=== PATIENT | female | born 1990 | race Two or more races ===

== ENCOUNTER → 2023-06-25 07:41 | Outpatient (REF) | payer BC, SELFPAY | LOC: PNTC 07:41 | PROVIDERS: ATTENDING PHYSICIAN Obstetrics & Gynecology | DX: O99.210 Obesity complicating pregnancy, unspecified trimester (principal); O13.9 Gestational [pregnancy-induced] hypertension without significant proteinuria, unspecified trimester; O09.819 Supervision of pregnancy resulting from assisted reproductive technology, unspecified trimester; O24.419 Gestational diabetes mellitus in pregnancy, unspecified control | CPT/HCPCS: 76816 ==

== ENCOUNTER → 2023-07-22 11:16 | Outpatient (REF) | payer BC, SELFPAY | LOC: PNTC 11:16 | PROVIDERS: ATTENDING PHYSICIAN Obstetrics & Gynecology | DX: O99.210 Obesity complicating pregnancy, unspecified trimester (principal); O35.5XX0 Maternal care for (suspected) damage to fetus by drugs, not applicable or unspecified; O09.819 Supervision of pregnancy resulting from assisted reproductive technology, unspecified trimester; O10.019 Pre-existing essential hypertension complicating pregnancy, unspecified trimester; O36.8390 Maternal care for abnormalities of the fetal heart rate or rhythm, unspecified trimester, not applicable or unspecified | CPT/HCPCS: 59025; 76818 ==

== ENCOUNTER → 2023-07-29 07:50 | Outpatient (REF) | payer BC, SELFPAY | LOC: PNTC 07:50 | PROVIDERS: ATTENDING PHYSICIAN Obstetrics & Gynecology | DX: O99.210 Obesity complicating pregnancy, unspecified trimester (principal); O13.9 Gestational [pregnancy-induced] hypertension without significant proteinuria, unspecified trimester; O35.5XX0 Maternal care for (suspected) damage to fetus by drugs, not applicable or unspecified; O09.819 Supervision of pregnancy resulting from assisted reproductive technology, unspecified trimester | CPT/HCPCS: 59025; 76815 ==

== ENCOUNTER → 2023-08-05 13:52 | Outpatient (REF) | payer BC, SELFPAY | LOC: PNTC 13:52 | PROVIDERS: ATTENDING PHYSICIAN Obstetrics & Gynecology | DX: O99.210 Obesity complicating pregnancy, unspecified trimester (principal); O13.9 Gestational [pregnancy-induced] hypertension without significant proteinuria, unspecified trimester; O35.5XX0 Maternal care for (suspected) damage to fetus by drugs, not applicable or unspecified; O09.819 Supervision of pregnancy resulting from assisted reproductive technology, unspecified trimester | CPT/HCPCS: 59025; 76815 ==

== ENCOUNTER → 2023-08-14 07:52 | Outpatient (REF) | payer BC, SELFPAY | LOC: PNTC 07:52 | PROVIDERS: ATTENDING PHYSICIAN Obstetrics & Gynecology | DX: O99.210 Obesity complicating pregnancy, unspecified trimester (principal); O13.9 Gestational [pregnancy-induced] hypertension without significant proteinuria, unspecified trimester; O35.5XX0 Maternal care for (suspected) damage to fetus by drugs, not applicable or unspecified; O09.819 Supervision of pregnancy resulting from assisted reproductive technology, unspecified trimester; O36.8390 Maternal care for abnormalities of the fetal heart rate or rhythm, unspecified trimester, not applicable or unspecified | CPT/HCPCS: 59025; 76818 ==

== ENCOUNTER → 2023-08-19 09:23 | Outpatient (REF) | payer BC, SELFPAY | LOC: PNTC 09:23 | PROVIDERS: ATTENDING PHYSICIAN Obstetrics & Gynecology | DX: O99.210 Obesity complicating pregnancy, unspecified trimester (principal); O09.819 Supervision of pregnancy resulting from assisted reproductive technology, unspecified trimester | CPT/HCPCS: 76816 ==

== ENCOUNTER → 2023-08-26 09:19 | Outpatient (REF) | payer BC, SELFPAY | LOC: PNTC 09:19 | PROVIDERS: ATTENDING PHYSICIAN Obstetrics & Gynecology | DX: O99.210 Obesity complicating pregnancy, unspecified trimester (principal); O99.320 Drug use complicating pregnancy, unspecified trimester; O09.819 Supervision of pregnancy resulting from assisted reproductive technology, unspecified trimester; O10.019 Pre-existing essential hypertension complicating pregnancy, unspecified trimester | CPT/HCPCS: 59025; 76815 ==

== ENCOUNTER 2023-09-02 18:43 | Inpatient (IN) | payer BC, SELFPAY ==
[2023-09-02 19:20] VITALS: BP 130/73; BMI 34.4
[2023-09-02 19:41] LABS: Glucose - Point of Care 127 mg/dl (70-99)
[2023-09-02 19:53] LABS: % Basophils 0.5 % (0-2); % Eosinophils 1.2 % (0-6); % Immature Granulocytes 0.6 % (0-0.5); % Lymphocytes 29.4 % (20.5-51.1); % Monocytes 6.1 % (1.7-9.3); % Neutrophils 62.2 % (42.2-75.2); Absolute Basophils 0.1 10^3/uL (0-0.2); Absolute Eosinophils 0.1 10^3/uL (0-0.7); Absolute Immature Granulocytes 0.1 10^3/uL (0-0.05); Absolute Lymphocytes 3.2 10^3/uL (1.2-3.4); Absolute Monocytes 0.7 10^3/uL (0.1-0.6); Absolute Neutrophils 6.7 10^3/uL (1.4-6.5); Hematocrit 34.3 % (37.0-47.0); Mean Corpuscular Hgb 28.6 pg (27.0-31.0); Mean Corpuscular Volume 81.9 fL (81.0-99.0); Mean Platelet Volume 11.6 fL (7.4-10.4); Nucleated Red Blood Cells % 0 %; Platelet Count 306 10^3/uL (130-400); Red Blood Cell Count 4.19 10^6/uL (4.20-5.40); Red Cell Dist. Width 13.8 % (11.5-14.5); White Blood Cell Count 10.8 10^3/uL (4.8-10.8)
[2023-09-02] MEDS: CYTOTEC 25 MICROGRAM VAG (20:01)
[2023-09-02 20:06] LABS: ALT (SGPT) 15 U/L (0-35); AST (SGOT) 28 U/L (14-36); Albumin 3.6 g/dl (3.5-5.0); Alkaline Phosphatase 114 U/L (38-126); Blood Urea Nitrogen 10 mg/dl (7-17); Calcium 9.8 mg/dl (8.4-10.2); Carbon Dioxide 19 mmol/L (22-30); Chloride 107 mmol/L (98-107); Estimated Creatinine Clearance > 125 ml/min; Glucose 125 mg/dl (70-99); Sodium 135 mmol/L (135-145); Total Bilirubin 0.4 mg/dl (0.2-1.3); Total Protein 6.6 g/dl (6.3-8.2); eGFR > 60.00
[2023-09-02] MEDS: TRANDATE 100 MG PO (21:27)
[2023-09-02] MEDS: HUMULIN N KWIKPEN 34 UNITS SC (22:10)
[2023-09-02 22:14] LABS: Glucose - Point of Care 103 mg/dl (70-99)
[2023-09-03] MEDS: CYTOTEC 50 MICROGRAM PO ×2 (04:01)
[2023-09-03 06:48] LABS: Glucose - Point of Care 97 mg/dl (70-99)
[2023-09-03] MEDS: CYTOTEC PO ×3 (08:13→15:43)
[2023-09-03] MEDS: TRANDATE 100 MG PO ×2 (08:19→20:16)
[2023-09-03] MEDS: PRENATAL PLUS 1 TABLET PO (08:19)
[2023-09-03 11:06] LABS: Glucose - Point of Care 94 mg/dl (70-99)
[2023-09-03] MEDS: TUMS EX (EXTRA STRENGTH) CHEWABLE 2 TABLET PO (11:31)
[2023-09-03 15:07] LABS: Glucose - Point of Care 88 mg/dl (70-99)
[2023-09-03] MEDS: PITOCIN 30 UNITS/NSS 500 ML IV (15:58)
[2023-09-03 19:19] LABS: Glucose - Point of Care 101 mg/dl (70-99)
[2023-09-03 23:11] LABS: Glucose - Point of Care 94 mg/dl (70-99)
[2023-09-04] MEDS: SUBLIMAZE 100 MCG EPIDURAL (00:48)
[2023-09-04] MEDS: FENTANYL/BUPIVACAINE 100 EPIDURAL ×3 (00:49→16:01)
--- NOTE | 2023-09-04 03:42 | DOWNTIME ---
There was a [employer] Washroom Attendant Downtime on 09/04/2023 from 0100 to 09/04/2023 at 0337. Downtime documentation of patient's care, including medication administrations, has been reconciled in the electronic record per guidelines. Refer to the
patient's paper chart under the miscellaneous tab to see printed paper medication records and downtime forms.
[2023-09-04 06:52] LABS: Glucose - Point of Care 83 mg/dl (70-99)
[2023-09-04] MEDS: TRANDATE 100 MG PO ×2 (08:05→22:05)
[2023-09-04] MEDS: PRENATAL PLUS 1 TABLET PO (08:05)
[2023-09-04] MEDS: LR 1000 IV (08:05)
[2023-09-04 09:53] LABS: Glucose - Point of Care 87 mg/dl (70-99)
[2023-09-04 11:03] LABS: Glucose - Point of Care 107 mg/dl (70-99)
[2023-09-04] MEDS: CYTOTEC PO (11:14)
[2023-09-04 15:10] LABS: Glucose - Point of Care 97 mg/dl (70-99)
[2023-09-04 17:56] LABS: Glucose - Point of Care 90 mg/dl (70-99)
[2023-09-04] MEDS: TYLENOL 1000 MG PO (18:02)
[2023-09-04] MEDS: ANCEF 10 IV (18:02)
[2023-09-04] MEDS: BICITRA 30 ML PO (18:02)
[2023-09-04 18:18] LABS: Urine Albumin Negative (Neg - Trace); Urine Bilirubin Negative (Negative); Urine Character Clear (Clear); Urine Color Yellow; Urine Glucose Negative (Negative); Urine Ketone 2+ (Negative); Urine Leukocyte Trace (Negative); Urine Nitrite Negative (Negative); Urine Occult Blood Trace (Negative); Urine Urobilinogen Negative (Neg - 1+)
[2023-09-04 18:30] LABS: Urine Bacteria Few (Negative)
[2023-09-04 18:32] LABS: Protein/creatinine Ratio 0.2; Urine Protein 12 mg/dl
[2023-09-04 19:03] LABS: Cord ABG Comment CORD BLOOD
[2023-09-04 19:05] LABS: B.E. Cord ABG -1.4 mMOL/L; HCO3 Cord ABG 26.4 mmol/L; O2 Saturation % Cord ABG 18.2 %; PCO2 Cord ABG 55 mmHg; PO2 Cord ABG 10 mmHg; pH Cord ABG 7.29
[2023-09-04 19:10] LABS: B.E. Cord ABG -1.3 mMOL/L; HCO3 Cord ABG 27.4 mmol/L; O2 Saturation % Cord ABG 9.7 %; PCO2 Cord ABG 61 mmHg; PO2 Cord ABG 6 mmHg; pH Cord ABG 7.26
[2023-09-04 19:35] VITALS: BP 132/81; BP 176/97
--- NOTE | 2023-09-04 19:36 | W.IMMPOSTOP ---
Surgical Immed Post Op Note
-
Primary Surgeon: Fatmata Meraz DO
Assisting Surgeon: Ruthie Pierce RN
Pre-op Diagnosis: IUP at 39+0wks, Failed IOL, CHTN, A2GDM, obesity
Post-op Diagnosis: ROXANN
Procedure Performed: PLTCS
Anesthesia Type: epidural, GETA
Specimen / Cultures: Placenta, cord gases
Estimated Blood Loss: 455ml
Complications: none
Operative Findings: Male , cephalic, Apgars 8/9, weight 4030gm. Clear amniotic fluid. Normal appearing uterus, tubes and ovaries. Intermittent atony after uterine closure, so Hemabate 250mcg given IM with good improvement in uterine tone.
Insufficient pain control with epidural anesthesia after skin incision was made; pt required GETA to complete surgery.
[2023-09-04 19:46] LABS: Glucose - Point of Care 151 mg/dl (70-99)
[2023-09-04] MEDS: TRANDATE 5 MG IV (19:49)
[2023-09-04 19:50] VITALS: BP 164/96
[2023-09-04] MEDS: DILAUDID 0.25 MG IV (19:53)
[2023-09-04 20:05] VITALS: BP 160/93
[2023-09-04 20:20] VITALS: BP 148/65
[2023-09-04 20:35] VITALS: BP 136/55
[2023-09-04 20:50] VITALS: BP 133/71
[2023-09-04] MEDS: TORADOL 15 MG IV (21:57)
[2023-09-04] MEDS: FLUSH (NSS) 2 FLUSH IV (21:57)
[2023-09-05] MEDS: PITOCIN 30 UNITS/NSS 500 ML IV
[2023-09-05] MEDS: IMODIUM 2 MG PO (01:47)
[2023-09-05] MEDS: TORADOL 15 MG IV ×3 (03:56→15:34)
[2023-09-05 04:36] LABS: Hemoglobin 11.2 g/dL (12.0-16.0); Mean Corp Hgb Conc. 32.9 g/dL (33.0-37.0); Mean Corpuscular Hgb 27.9 pg (27.0-31.0); Mean Corpuscular Volume 84.6 fL (81.0-99.0); Mean Platelet Volume 11.5 fL (7.4-10.4); Platelet Count 242 10^3/uL (130-400); Red Blood Cell Count 4.02 10^6/uL (4.20-5.40); White Blood Cell Count 16.3 10^3/uL (4.8-10.8)
[2023-09-05] MEDS: TRANDATE 100 MG PO ×3 (07:44→20:17)
[2023-09-05] MEDS: PRENATAL PLUS 1 TABLET PO (07:44)
[2023-09-05] MEDS: MYLICON 80 MG PO ×3 (07:45→18:08)
[2023-09-05] MEDS: PERCOCET 5/325 1 TABLET PO (07:45)
--- NOTE | 2023-09-05 09:21 | W.PN.ANS.POP ---
Anesthesia Post Operative
- Anesthesia Post Op Note
Vital Signs Stable-See Nursing Note: Yes
Airway Patent: Yes
Adequate Pain Control: Yes
Change in Mental Status: No
Current Postoperative Nausea & Vomiting: No
Anesthesia Complications: No
General Anesthetic Recall: No
Unplanned Admission: No
Post Op Hydration Adequate: Yes
[2023-09-05] MEDS: SENOKOT-S 1 TABLET PO (10:32)
[2023-09-05] MEDS: TYLENOL 650 MG PO (20:17)
[2023-09-05 20:25] LABS: Hematocrit 31.6 % (37.0-47.0); Hemoglobin 10.9 g/dL (12.0-16.0); Mean Corp Hgb Conc. 34.5 g/dL (33.0-37.0); Mean Corpuscular Hgb 28.5 pg (27.0-31.0); Mean Corpuscular Volume 82.7 fL (81.0-99.0); Mean Platelet Volume 11.2 fL (7.4-10.4); Platelet Count 265 10^3/uL (130-400); Red Blood Cell Count 3.82 10^6/uL (4.20-5.40); Red Cell Dist. Width 14.3 % (11.5-14.5); White Blood Cell Count 13.1 10^3/uL (4.8-10.8)
[2023-09-05 20:55] LABS: ALT (SGPT) 16 U/L (0-35); AST (SGOT) 39 U/L (14-36); Albumin 3.3 g/dl (3.5-5.0); Alkaline Phosphatase 102 U/L (38-126); Blood Urea Nitrogen 9 mg/dl (7-17); Calcium 9.1 mg/dl (8.4-10.2); Carbon Dioxide 21 mmol/L (22-30); Chloride 108 mmol/L (98-107); Estimated Creatinine Clearance > 125 ml/min; Glucose 105 mg/dl (70-99); Sodium 137 mmol/L (135-145); Total Bilirubin 0.3 mg/dl (0.2-1.3); Total Protein 5.8 g/dl (6.3-8.2); eGFR > 60.00
[2023-09-05 22:40] LABS: Glucose - Point of Care 113 mg/dl (70-99)
[2023-09-06] MEDS: TYLENOL 650 MG PO ×4 (02:01→22:19)
[2023-09-06] MEDS: BENADRYL 25 MG IV (03:18)
[2023-09-06] MEDS: PRENATAL PLUS 1 TABLET PO (08:12)
[2023-09-06] MEDS: TRANDATE 200 MG PO ×2 (08:13→20:00)
[2023-09-06] MEDS: SENOKOT-S 1 TABLET PO (08:16)
[2023-09-06] MEDS: MOTRIN 600 MG PO ×3 (08:16→22:19)
[2023-09-06 13:45] LABS: Syphilis/T. pallidum Ab Reflex Negative (Negative)
--- NOTE | 2023-09-06 14:46 | CON.MD ---
Consultation - Medical
-
patient seen chart reviewed. discussed with nursing. patient is a 33 year old woman who delivered her baby boy via c section yesterday. the child was conceived via in vitro. her was in the room during this interview. n the wake of the labor
and delivery she suffered with panic so much so the staff said she was almost shivering. this consult ordered for ? panic attacks. the patient describes that she can be an anxious person but the anxiety generally does not interfere with her life
either at work or at home . the past year has been even more stressful than usual. she moved here from [place] and they renovated their new home which went on even through the last trimester. she had issues with hypertension and gestational diabetes .
she was to be induced but the induction did not work and she wound up requiring a c section . the initial anaesthetic did not take and she felt pain upon incision. she is at this point feeling less anxious but fearful about her anxiety recurring
in earnest. she did have a panic attack while in college but it was short lived and never required treatment by a psychiatrist or other therapist. she is normally a happy person and her concurred with this assessment. she works a stressful
job in sales for [employer]. she enjoys her life. she has friendships and family supports. sleep generally okay unless there is something coming up at work. appetite is good. energy level is normal for her.she has never had suicidal thoughts.
there is nothing to suggest psychosis.
past psych hx see above
medical hx htn gestational diabetes pco patient reports that she actually felt healthier during her . pco has not been treated medically
family hx anxiety brother takes prn for anxiety
substance abuse none
social supportive college grad works for [employer]. denies any hx abuse sexual or physical recently moved here from [place]
mse alert ox3 cooperative pleasant. speech and thought process nl affect normal mood is euthymic no si no psychosis above aver intell insight judgment good
dx adjustment disorder w anxious fx r.o panic disorder
plan at this point would suggest only rare and prn ativan. explained to patient that ativan generally considered safe with but preferred is infrequent use. need to take care re sedation in terms of cognition and falling and baby should be
monitored re sedation, slow feeding etc. my guess is this patient will not use ativan frequently. i have ordered q 12 hours and if needed she can see how it goes in hospital. would dc with no more than ten pills. if she needs more than this in the
next two or three weeks would consider use of zoloft for longer control of anxiety . zoloft generally considered safe w . gave her the names of two psychiatrists in the community although zoloft can be prescribed by pcp or obgyn.
[2023-09-07] MEDS: TYLENOL 650 MG PO ×3 (05:01→19:36)
[2023-09-07] MEDS: MOTRIN 600 MG PO ×3 (05:01→19:37)
[2023-09-07] MEDS: PRENATAL PLUS 1 TABLET PO (07:52)
[2023-09-07] MEDS: TRANDATE 200 MG PO ×2 (07:52→08:19)
[2023-09-07] MEDS: SENOKOT-S 1 TABLET PO (07:52)
[2023-09-07] MEDS: APRESOLINE 10 MG IV ×2 (14:58→15:48)
[2023-09-07 15:04] LABS: Hematocrit 37.4 % (37.0-47.0); Hemoglobin 12.3 g/dL (12.0-16.0); Mean Corp Hgb Conc. 32.9 g/dL (33.0-37.0); Mean Corpuscular Hgb 28.1 pg (27.0-31.0); Mean Corpuscular Volume 85.4 fL (81.0-99.0); Platelet Count 307 10^3/uL (130-400); Red Blood Cell Count 4.38 10^6/uL (4.20-5.40); Red Cell Dist. Width 14.4 % (11.5-14.5); White Blood Cell Count 10.7 10^3/uL (4.8-10.8)
[2023-09-07 15:08] LABS: ALT (SGPT) 23 U/L (0-35); AST (SGOT) 41 U/L (14-36); Albumin 3.8 g/dl (3.5-5.0); Alkaline Phosphatase 103 U/L (38-126); Blood Urea Nitrogen 10 mg/dl (7-17); Calcium 9.7 mg/dl (8.4-10.2); Carbon Dioxide 22 mmol/L (22-30); Chloride 107 mmol/L (98-107); Estimated Creatinine Clearance > 125 ml/min; Glucose 107 mg/dl (70-99); Potassium 4.2 mmol/L (3.5-5.1); Sodium 140 mmol/L (135-145); Total Bilirubin 0.4 mg/dl (0.2-1.3); Total Protein 6.8 g/dl (6.3-8.2); eGFR > 60.00
[2023-09-07] MEDS: ATIVAN 0.5 MG PO (15:41)
--- NOTE | 2023-09-07 15:48 | CON.CAR ---
Consultation
Consultation Request
Date/Time Consultation Requested: 09/07/2023 at 1500
Date/Time Consultation Performed: 09/07/2023 at 1500
Requesting Provider: Dr. Neely
Performing Provider: Dr. Cordova
Reason for Consultation: Hypertension
Medical History
-
History of Present Illness:
33-year-old woman who is now after . This is her first . Patient has a history of a history of gestational diabetes and hypertension who had been maintained on labetalol during her at 100 mg twice daily. She
underwent a and is now in recovery. She has been maintained on labetalol but has had some issues with increased blood pressure prompting titration of labetalol up to 100 mg twice a day and then today increased to 400 mg twice daily.
Patient still had issues with elevated blood pressures. In addition to the above patient's had periods of anxiety and at times is felt like she has had panic attacks where she just feels like she is shaky and anxious and feels like she is having
difficulty breathing. She has been seen by psychiatry this admission and has prescription for as needed Ativan no additional medical therapy recommended at this time.
Patient states she has had no prior history of cardiac disease and no history of hypertension preceding . She says at times she had elevated readings and it was suspected that she had whitecoat hypertension. She states that prior to
she sometimes would feel a bit anxious but it was nothing that required additional treatment and she was not having any feelings that were as pronounced as what she has had more recently.
Past medical history
As noted above
Social history
Family history notable for father with coronary disease and pacemaker
Past Medical History
Past Medical History: Other (As above)
Social History
Tobacco: Non-Smoker
Family History
Family History: CAD
Allergies / Home Medications
Allergy/AdvReac Type Severity Reaction Status Date / Time
No Known Allergies Allergy Verified 09/02/23 19:20
�Medication �Instructions �Recorded �Confirmed �Type
aspirin 81 mg tablet,delayed 81 mg PO DAILY Blood Clot 09/02/23 09/02/23 History
release Prevention/Tx
insulin NPH isoph U-100 human 100 6 unit SC DAILY Diabetes 09/02/23 09/03/23 History
unit/mL (3 mL) subcutaneous pen
(Novolin N FlexPen)
insulin NPH isoph U-100 human 100 34 unit SC HS Diabetes 09/02/23 09/02/23 History
unit/mL (3 mL) subcutaneous pen
(Novolin N FlexPen)
labetalol 100 mg tablet 100 mg PO BID Blood Pressure 09/02/23 09/02/23 History
prenat.vits,thomas,xbh-vgaz-[id number] 1 tab PO DAILY Supplement 09/02/23 09/02/23 History
Review of Systems
-
All other systems: Negative unless noted
Physical Exam
Vital Signs
Temp Pulse Resp BP Pulse Ox
97.9 F 69 20 179/100 96
09/04/23 20:50 09/07/23 14:58 09/04/23 20:50 09/07/23 14:58 09/04/23 20:50
Lab Results
09/07/23 14:49
09/07/23 14:49
Physical Exam
General: Well Developed, Well Nourished and Other (Anxious.)
HEENT: Normocephalic, Anicteric and Moist Mucous Membranes
Respiratory: Clear and Other (No wheezes rales or rhonchi)
Cardiac: Regular Rhythm
GI: Other ( abdomen)
Musculoskeletal: No Clubbing, No Cyanosis and No Edema
Neuro: Awake and Alert
Psych: Other (Cooperative. Anxious at end of visit particularly when nurse came in to take blood pressure)
Impression / Plan
-
Hypertension.
-Patient with hypertension during for which she was on labetalol and now with hypertension. Patient also appears to have a component of reactive hypertension which is impacted by anxiety. Postop pain also can add to her
variation in blood pressure as well. Had 1 set of blood pressures earlier this morning in the 120s over 80s and then most recently she had a blood pressure of 170/94 while I was in the room. Clinically the patient started to appear anxious as soon
as the nurse came into take her blood pressure and then was even more anxious when she heard her blood pressure was elevated. Labetalol dosing has just been increased by EXHAUST AND MUFFLER REPAIRER and patient just had her first 400 mg dose this morning and as needed
hydralazine has just been initiated by EXHAUST AND MUFFLER REPAIRER.
-Continue labetalol 400 mg twice daily.
-Continue hydralazine IV as needed as per protocol. We will assess response.
-Additional treatment of anxiety. Patient just received a dose of Ativan and can reassess blood pressure after Ativan's been given enough time to work.
-Postop pain control
-If despite all the measures above patient requires additional blood pressure control then use of Procardia can be considered.
.
Postop . Treatment directed by EXHAUST AND MUFFLER REPAIRER
Anxiety. Additional treatment as directed by EXHAUST AND MUFFLER REPAIRER and psychiatry.
Data Reviewed
-
EKG: Report Reviewed by me
Medical Tests (Nuc Med, Echo etc): Report Reviewed by me
Labs: Labs Reviewed by me
[2023-09-07] MEDS: MYLICON 80 MG PO (17:07)
[2023-09-07] MEDS: TRANDATE 20 MG IV (17:15)
[2023-09-07] MEDS: TRANDATE 400 MG PO (19:31)
[2023-09-08] MEDS: TYLENOL 650 MG PO ×3 (02:51→20:02)
[2023-09-08] MEDS: MOTRIN 600 MG PO ×3 (02:51→20:02)
[2023-09-08] MEDS: MYLICON 80 MG PO (03:15)
[2023-09-08] MEDS: SENOKOT-S 1 TABLET PO (08:10)
[2023-09-08] MEDS: PRENATAL PLUS 1 TABLET PO (08:10)
[2023-09-08] MEDS: TRANDATE 400 MG PO ×2 (08:11→20:02)
--- NOTE | 2023-09-08 08:41 | W.PN.CD ---
Today's Communication / Plan
-
-Continue labetalol 400 mg twice daily.
-Appears patient will require addtional BP control. Can add Procardia XL 30 Mg
- will review with Dr Neely
Impression / Plan
-
Hypertension.
-Patient with hypertension during for which she was on labetalol and now with hypertension. Patient also appears to have a component of reactive hypertension which is impacted by anxiety. Yesddaywas more anxious and felt
better after ativan and clear is feeling better this morning. aptient recieved Labetalol 400mg BID yesterday and some PRN Hydralazine and a\\Labetalol as per BENEFIT DIRECTOR protocol
-Continue labetalol 400 mg twice daily.
-Appears patient will require addtional BP control. Can add Procardia XL 30 Mg
- Reviewed with Dr Neely
.
Postop . Treatment directed by BENEFIT DIRECTOR
Anxiety. Additional treatment as directed by BENEFIT DIRECTOR and psychiatry.
Physical Exam
Vital Signs/Labs
Vital Signs
Temp Pulse Resp BP Pulse Ox
97.9 F 82 20 150/92 96
09/04/23 20:50 09/07/23 19:31 09/04/23 20:50 09/07/23 19:31 09/04/23 20:50
09/07/23 14:49
09/07/23 14:49
Physical Exam
Constitutional: No acute distress
Cardiovascular: Rhythm & rate is regular
Respiratory: Respiratory effort normal
GI: Soft
Neuro/Psych: Alert and Oriented
Other: Cath Site
Data Reviewed
-
Date of Service: September 08, 2023
Medical Decision Making: Review of Case with other Provider (reviewed with Dr Neely)
Medical Tests (PFT, Pathology etc): Report Reviewed by me
[2023-09-08] MEDS: PROCARDIA XL (EXTENDED RELEASE) 30 MG PO (09:47)
[2023-09-08] MEDS: APRESOLINE 10 MG IV (17:40)
[2023-09-09] MEDS: MOTRIN 600 MG PO ×2 (04:19→10:11)
[2023-09-09] MEDS: TYLENOL 650 MG PO ×2 (04:19→10:12)
--- NOTE | 2023-09-09 08:21 | W.PN.CD ---
Today's Communication / Plan
-
-Continue labetalol 400 mg twice daily.
-Continue Procardia XL 30 Mg added yesterday
-Would give an Rx for hydralazine 20mg po TID prn bp >180/100
-Follow up Yvette PAREDES 4pm at [address] [facility] [phone]
Impression / Plan
-
induced hypertension.
-Patient with hypertension during for which she was on labetalol and now with hypertension.
-Overnight numbers improved to 139-147/60-80's
-Patient also appears to have a component of reactive hypertension which is impacted by anxiety.
-Continue labetalol 400 mg twice daily.
-Continue Procardia XL 30 Mg added yesterday
-Would give an Rx for hydralazine 20mg po TID prn bp >180/100
-Reviewed the appropriate way to check home bp and she will bring to the office.
-She will follow up with Yvette PAREDES 4pm at [address] [facility] [phone]
.
Postop . Treatment directed by FLOTATION TENDER HELPER
Anxiety. Additional treatment as directed by FLOTATION TENDER HELPER and psychiatry.
Physical Exam
Vital Signs/Labs
Vital Signs
Temp Pulse Resp BP Pulse Ox
97.9 F 86 20 160/86 96
09/04/23 20:50 09/08/23 20:02 09/04/23 20:50 09/08/23 20:02 09/04/23 20:50
09/07/23 14:49
09/07/23 14:49
Physical Exam
Constitutional: No acute distress
Cardiovascular: Rhythm & rate is regular, Pedal edema is absent, JVD pressure is normal and Systolic murmur absent
Respiratory: Respiratory effort normal, Lungs clear to auscul., Wheeze Absent, Crackles Absent and Rhonchi Absent
Neuro/Psych: AO x 3
Data Reviewed
-
Date of Service: September 09, 2023
[2023-09-09] MEDS: PROCARDIA XL (EXTENDED RELEASE) 30 MG PO (08:40)
[2023-09-09] MEDS: PRENATAL PLUS 1 TABLET PO (08:40)
[2023-09-09] MEDS: TRANDATE 400 MG PO (08:41)
--- NOTE | 2023-09-09 12:38 | W.DS.TRANS ---
DC Summary - Stenciler
-
Discharge Instructions:
Discharge Diagnosis/Procedures section, Anxiety, Hypertension
Diet Regular
Activity No strenuous activity
Driving Restrictions No driving for 2 weeks
Bathing Restrictions OK to Shower
Instructions:
Stand-Alone Forms: LDRP Delivery
LDRP Hypertensive Disorders
Changes to Home Medications: No
Discharge Medications:
DC Medications w/original date entered in [employer]
acetaminophen 325 mg tablet 650 mg (2 x 325 mg) PO Q4HPRN PRN mild pain #0 tabs 09/08/23
ibuprofen 600 mg tablet 600 mg PO Q6HPRN PRN cramps #45 tabs 09/08/23
labetalol 200 mg tablet 400 mg (2 x 200 mg) PO BID #90 tabs 09/08/23
lorazepam 0.5 mg tablet 0.5 mg PO [id number] PRN anxiety #10 tabs 09/08/23
nifedipine 30 mg tablet,extended release 30 mg PO DAILY #60 tabs 09/08/23
vitamin with calcium no.72-iron 27 mg-folic acid 1 mg tablet (WesTab Plus) 1 tab PO DAILY #0 tabs 09/08/23
sennosides 8.6 mg-docusate sodium 50 mg tablet (Stool Softener-Laxative) 1 tab PO DAILYPRN PRN constipation #0 tabs 09/08/23
hydralazine 10 mg tablet 20 mg (2 x 10 mg) PO TID PRN for BP >180/100 #20 tabs 09/09/23
Home Medication Changes
Pending Results: No
Total time spent discharging patient (in min): 25
== END 2023-09-09 13:45 | disposition home or self-care (01) | DRG 787 ==
LOC: LDRP 18:43
PROVIDERS: Obstetrics & Gynecology; ADMITTING PHYSICIAN Obstetrics & Gynecology; CONSULT PHYSICIAN Internal Medicine Cardiovascular Disease; FAMILY PHYSICIAN Family Medicine; OTHER PHYSICIAN Psychiatry & Neurology Psychiatry
PROC: 3E0P7VZ Introduction of Hormone into Female Reproductive, Via Natural or Artificial Opening (ICD-10-PCS; 2023-09-02)
PROC: 10907ZC Drainage of Amniotic Fluid, Therapeutic from Products of Conception, Via Natural or Artificial Opening (ICD-10-PCS; 2023-09-03)
PROC: 0U7C7ZZ Dilation of Cervix, Via Natural or Artificial Opening (ICD-10-PCS; 2023-09-03)
PROC: 3E033VJ Introduction of Other Hormone into Peripheral Vein, Percutaneous Approach (ICD-10-PCS; 2023-09-03)
PROC: 10H07YZ Insertion of Other Device into Products of Conception, Via Natural or Artificial Opening (ICD-10-PCS; 2023-09-04)
PROC: 6A550ZT Pheresis of Cord Blood Stem Cells, Single (ICD-10-PCS; 2023-09-04)
PROC: 10D00Z1 Extraction of Products of Conception, Low, Open Approach (ICD-10-PCS; 2023-09-04)
DX: O24.424 Gestational diabetes mellitus in childbirth, insulin controlled (principal); O10.02 Pre-existing essential hypertension complicating childbirth; O72.1 Other immediate postpartum hemorrhage; Z3A.38 38 weeks gestation of pregnancy; Z37.0 Single live birth; K21.9 Gastro-esophageal reflux disease without esophagitis; O99.284 Endocrine, nutritional and metabolic diseases complicating childbirth; E28.2 Polycystic ovarian syndrome; Z82.49 Family history of ischemic heart disease and other diseases of the circulatory system; Z83.2 Family history of diseases of the blood and blood-forming organs and certain disorders involving the immune mechanism; Z28.310 Unvaccinated for COVID-19; O99.214 Obesity complicating childbirth; O99.344 Other mental disorders complicating childbirth; F41.9 Anxiety disorder, unspecified; F32.A Depression, unspecified; F90.9 Attention-deficit hyperactivity disorder, unspecified type; O61.0 Failed medical induction of labor; J98.01 Acute bronchospasm; F43.0 Acute stress reaction
CPT/HCPCS: 88307; 76815; 80053; 81003; 81015; 82570; 82803; 82962; 84156; 85025; 85027; 86780; 86850; 86900; 86901

== ENCOUNTER 2023-10-22 11:31 | Emergency (ER) | payer BC, SELFPAY ==
[2023-10-22] VITALS (7 sets, daily range): BP systolic 137–175; BP diastolic 98–113
[2023-10-22 11:59] LABS: % Eosinophils 2.5 % (0-6); % Immature Granulocytes 0.1 % (0-0.5); % Lymphocytes 36.8 % (20.5-51.1); % Monocytes 6.9 % (1.7-9.3); % Neutrophils 52.7 % (42.2-75.2); Absolute Basophils 0.1 10^3/uL (0-0.2); Absolute Eosinophils 0.2 10^3/uL (0-0.7); Absolute Monocytes 0.6 10^3/uL (0.1-0.6); Absolute Neutrophils 4.3 10^3/uL (1.4-6.5); Hematocrit 40.9 % (37.0-47.0); Hemoglobin 13.8 g/dL (12.0-16.0); Mean Corp Hgb Conc. 33.7 g/dL (33.0-37.0); Mean Corpuscular Hgb 28.6 pg (27.0-31.0); Mean Corpuscular Volume 84.7 fL (81.0-99.0); Mean Platelet Volume 9.9 fL (7.4-10.4); Nucleated Red Blood Cells % 0 %; Platelet Count 313 10^3/uL (130-400); Red Blood Cell Count 4.83 10^6/uL (4.20-5.40); Red Cell Dist. Width 14.1 % (11.5-14.5); White Blood Cell Count 8.1 10^3/uL (4.8-10.8)
[2023-10-22 12:15] LABS: ALT (SGPT) 39 U/L (0-35); AST (SGOT) 30 U/L (14-36); Albumin 4.5 g/dl (3.5-5.0); Alkaline Phosphatase 56 U/L (38-126); Blood Urea Nitrogen 11 mg/dl (7-17); Calcium 9.8 mg/dl (8.4-10.2); Carbon Dioxide 26 mmol/L (22-30); Chloride 105 mmol/L (98-107); Glucose 120 mg/dl (70-99); Potassium 4.5 mmol/L (3.5-5.1); Sodium 137 mmol/L (135-145); Total Bilirubin 0.6 mg/dl (0.2-1.3); eGFR > 60.00
[2023-10-22 12:27] LABS: Troponin I < 0.012 ng/ml
[2023-10-22 13:07] LABS: D-Dimer 0.29 ug/mlFEU (0.00-0.50)
[2023-10-22 13:08] LABS: Urine Albumin Negative (Neg - Trace); Urine Bilirubin Negative (Negative); Urine Character Clear (Clear); Urine Color Yellow; Urine Glucose Negative (Negative); Urine Ketone Negative (Negative); Urine Leukocyte Negative (Negative); Urine Nitrite Negative (Negative); Urine Occult Blood Negative (Negative); Urine Specific Gravity 1.005 (<1.030); Urine Urobilinogen Negative (Neg - 1+)
[2023-10-22] MEDS: TYLENOL 650 MG PO (13:33)
--- NOTE | 2023-10-22 14:39 | ED.GENMED ---
History of Present Illness
General
Chief Complaint: Chest Pain
Source: patient and spouse
Exam Limitations: none
Time Seen by Provider: 10/22/23 11:54
Nursing documentation reviewed up to this point in time: agreed with
History of Present Illness
History of Present Illness:
33-year-old female with recent delivery 7 months ago via presenting to the emergency department today with concerns of chest pressure and palpitations this morning that has since resolved a few hours ago. Also has had some ongoing
headache over the past few weeks. She was recently taken off Procardia was on this due to high blood pressure . Currently taking labetalol. Denies any ongoing chest pain shortness of breath numbness weakness nausea vomiting.
Review of Systems
Review of Systems
Allergies reviewed?: Yes
All Other Systems: ROS reviewed and negative except as documented in HPI and ROS
Phy Exam
Physical Exam
Physical Exam:
GENERAL: Alert , in no apparent distress
EYE: pupils equal and reactive
NECK: Supple, no significant adenopathy.
ENT: o/p clr, mmm.
CARDIAC: Regular rate and rhythm .
LUNGS: Clear breath sounds bilaterally, no acute respiratory distress, no wheezes/rales/rhonchi
ABDOMEN: Soft, without focal tenderness, no r/g, no cvat
NEUROLOGICAL: Alert and oriented, no focal neuro deficits 5 out of 5 upper and lower extremity strength normal sensation with palpating bilaterally normal picking nose he noted send no pronator drift
SKIN: Warm and dry, skin intact.
MUSCULOSKELETAL: No edema, well perfused.
PSYCH: Normal and appropriate interaction.
Scores
Heart Score for Chest Pain Patients
STEMI patient?: No
History: Slightly or Non-Suspicious
ECG: Normal
Age: </= 45 years
Risk Factors: No Risk Factors
Troponin: </= Normal Limit
Heart Score for Chest Pain Patients: 0
Heart Score Risk: 2.5% MACE over next 6 weeks
Course
Orders/Labs/Results
Orders:
Orders
10/22/23 11:39
Electrocardiogram (*1) Urgent
Reason for Study: Chest Pain
Cardiac Monitoring- Treatment ONCE
EKG- Treatment ONCE
IV Insert/Care/Rem.- Treatment PRN
O2 Therapy [RESP] Urgent
Titrate/Wean O2 to maintain O2 sat greater than (%): 90
Special Instructions: Maintain sats >/=90%
Pulse Ox/spot Check [RESP] Urgent
Quantity: 1
Special Instructions: ON ROOM AIR
10/22/23 11:49
Complete Blood Count/With Diff Urgent
Comprehensive Metabolic Panel Urgent
Troponin I Urgent
10/22/23 12:26
Chest [CR Chest - 2 Views ] Urgent
Comment:
Reason For Exam: cp
10/22/23 12:44
D-Dimer Urgent
Urinalysis Reflex To Culture Urgent
Date Specimen was Collected: 10/22/23
Time Specimen was Collected: 12:39
10/22/23 13:28
Acetaminophen [Tylenol] 650 mg .ROUTE .STK-MED ONE
10/22/23 13:32
Acetaminophen [Tylenol] 650 mg PO NOW STA
10/22/23 14:39
Ibuprofen [Motrin] 600 mg PO NOW STA
Abnormal Lab Results
10/22/23
11:49
Glucose 120 H mg/dl
(70-99)
ALT 39 H U/L
(0-35)
10/22/23 11:49
10/22/23 11:49
Vital Signs
Initial and Last Documented VS:
Initial Vital Signs
Temp Pulse Resp BP Pulse Ox
97.8 F 72 18 172/111 98
10/22/23 11:32 10/22/23 11:32 10/22/23 11:32 10/22/23 11:32 10/22/23 11:32
Last Documented Vital Signs
Temp Pulse Resp BP Pulse Ox
97.8 F 75 14 151/107 96
10/22/23 11:32 10/22/23 13:24 10/22/23 13:24 10/22/23 13:24 10/22/23 13:24
MDM/Problems Addressed
MDM/Problems Addressed:
33-year-old female presenting to the emergency department today with concerns of chest pain shortness of breath resolving prior to arrival additionally ongoing headache for multiple weeks. Here initial blood pressure was elevated but improving to
normal without specific treatment. Remainder vital signs normal labs obtained and unremarkable urinalysis normal patient is out of window for preeclampsia but blood pressure also is improving. Troponin negative EKG normal. Acute cardiac etiology
very unlikely D-dimer negative PE very unlikely cause of chest pain. Patient with normal neurologic evaluation does not appear to require emergent imaging at this time but was advised for outpatient follow-up return precautions given.
*Critical Care Note
Total Time (30-74mins, 75-104mins- exclusive of procedures): Not Applicable
ED Attending Note
-
Portions of this chart may have been created with voice recognition software.� Occasional wrong word or��sound alike� substitutions may have occurred due to the inherent limitations of voice recognition software.
Discharge Plan
Departure
Patient Disposition: Home (Routine Discharge)
Date of Disposition: 10/22/23
Time of Disposition: 14:41
Patient with high blood pressure during this ER visit?: No
Condition: Good
Covid-19: Not Applicable
Discharge Problem:
Chest pain, Headache
Instructions: Chest Pain DCA Follow Up
Prescriptions:
No Action
labetalol 200 mg Tablet
400 mg PO BID Qty: 90 0RF
sennosides-docusate sodium [Stool Softener-Laxative] 8.6-50 mg Tablet
1 tab PO DAILYPRN PRN (Reason: constipation) Qty: 0 0RF
nifedipine 30 mg Tablet Extended Release
30 mg PO DAILY Qty: 60 0RF
lorazepam 0.5 mg Tablet
0.5 mg PO [id number] PRN (Reason: anxiety) Qty: 10 0RF
ibuprofen 600 mg Tablet
600 mg PO Q6HPRN PRN (Reason: cramps) Qty: 45 0RF
WesTab Plus 27 mg iron- 1 mg Tablet
1 tab PO DAILY Qty: 0 0RF
acetaminophen 325 mg Tablet
650 mg PO Q4HPRN PRN (Reason: mild pain) Qty: 0 0RF
hydralazine 10 mg tablet
20 mg PO TID PRN (Reason: for BP >180/100) Qty: 20 0RF
Referrals:
Robi Garcia MD [Active] - Follow up in 5-7 days
Cristobal Cisneros DO [Family Provider] -
Activity Restrictions/Additional Instructions:
You came to the emergency department today with concerns of chest discomfort as well as ongoing headache. Here you have a reassuring assessment. Please follow-up closely with neurology and cardiology for further assessment. Return to the
emergency department for any worsening, new or concerning symptoms.
Interventions
Interventions:
*Risk Screen - Suicide Last Done: 10/22/23 11:32
*General Assessment Last Done: 10/22/23 11:32
*ED COVID-19 Vaccine History Last Done: 10/22/23 11:32
ED- Cardiac Assessment Last Done: 10/22/23 12:17
Discharge Date and Time
Print Language: SLOVAK
[2023-10-22] MEDS: MOTRIN 600 MG PO (14:52)
== END 2023-10-22 15:31 | disposition home or self-care (01) ==
LOC: EMR 11:31
PROVIDERS: Physician Assistant; EMERGENCY PHYSICIAN Emergency Medicine; FAMILY PHYSICIAN Family Medicine
DX: R07.89 Other chest pain (principal); R51.9 Headache, unspecified
CPT/HCPCS: 99283; 71046; 80053; 81003; 84484; 85025; 85379; 93005

== ENCOUNTER → 2023-10-30 13:57 | Outpatient (REF) | payer BC, SELFPAY | LOC: HWRCS 13:57 | PROVIDERS: ATTENDING PHYSICIAN Nurse Practitioner; FAMILY PHYSICIAN Family Medicine | DX: R00.2 Palpitations (principal); R07.89 Other chest pain; R06.02 Shortness of breath | CPT/HCPCS: 93306 ==

== ENCOUNTER → 2023-11-05 10:25 | Outpatient (REF) | payer BC, SELFPAY | LOC: RCS 10:25 | PROVIDERS: ATTENDING PHYSICIAN Nurse Practitioner; FAMILY PHYSICIAN Family Medicine | DX: R00.2 Palpitations (principal); R07.89 Other chest pain; R06.02 Shortness of breath | CPT/HCPCS: 93225; 93226 ==

== ENCOUNTER → 2023-11-15 07:28 | Outpatient (REF) | payer BC, SELFPAY | LOC: RAD 07:28 | PROVIDERS: ATTENDING PHYSICIAN Internal Medicine Endocrinology, Diabetes & Metabolism; FAMILY PHYSICIAN Family Medicine; OTHER PHYSICIAN Internal Medicine Nephrology; REFERRING PHYSICIAN Nurse Practitioner Adult Health | DX: D35.00 Benign neoplasm of unspecified adrenal gland (principal) | CPT/HCPCS: 74150 ==

== ENCOUNTER 2023-12-20 13:11 | Emergency (ER) | payer BC, SELFPAY ==
[2023-12-20 13:22] VITALS: BP 162/95
--- NOTE | 2023-12-20 13:45 | ED.GENMED ---
History of Present Illness
<Praneeth Mccrary PA-C - Last Filed: 12/21/23 12:36>
General
Chief Complaint: Breathing Problem
Time Seen by Provider: 12/20/23 13:32
History of Present Illness
History of Present Illness:
33-year-old female with history of pheochromocytoma status post left adrenalectomy performed 2 days ago at [facility] presents to the emergency department for evaluation of dizziness, nausea, chest discomfort, and shortness
of breath beginning today. She was concerned that her blood pressure was elevated at home as well as elevated heart rate. Her blood pressure medications were discontinued the day of surgery. She denies any fever, vomiting, or diarrhea. Has had
constipation and had bright red blood per rectum this morning as well, known history of hemorrhoids. Denies any abdominal pain
Review of Systems
<Praneeth Mccrary PA-C - Last Filed: 12/21/23 12:36>
Review of Systems
Allergies reviewed?: Yes
All Other Systems: ROS reviewed and negative except as documented in HPI and ROS
Phy Exam
<Praneeth Mccrary PA-C - Last Filed: 12/21/23 12:36>
Physical Exam
Physical Exam:
GEN: Well appearing, NAD, WDWN
Eyes: PERRLA, EOMs intact, no scleral icterus
HENT: NCAT, oral mucosa moist
Lungs: CTAB, no wheezes, rales, rhonchi, normal chest wall excursion
Cardiac: RRR, no M/R/G, no peripheral edema. Radial pulses 2+ bilat
Abdomen: Laparoscopic port sites on the left abdomen clean dry intact with no erythema. Abdomen is generally soft and grossly nontender
Neuro: AO x 3
MSK: No gross deformity or ecchymosis. No edema. No digital clubbing
Skin: No rashes, petechiae. Normal color, no pallor or jaundice.
Psych: Calm, cooperative, proper hygiene
Course
<Praneeth Mccrary PA-C - Last Filed: 12/21/23 12:36>
Orders/Labs/Results
Orders:
Orders
12/20/23 13:12
Electrocardiogram (*1) Urgent
Reason for Study: Shortness of Breath
12/20/23 13:13
EKG- Treatment ONCE
12/20/23 13:44
CT Chest Pe Study Urgent
Comment:
Reason For Exam: chest pain/SOB, 2d s/p L adrenalectomy
12/20/23 13:59
Test Result ONCE
12/20/23 14:05
Complete Blood Count/With Diff Urgent
Comprehensive Metabolic Panel Urgent
HCG, Serum Qualitative Screen Urgent
Troponin I Urgent
12/20/23 15:44
CT Head W/o Iv Contrast Urgent
Comment:
Reason For Exam: headache
12/20/23 14:05
12/20/23 14:05
Vital Signs
Initial and Last Documented VS:
Initial Vital Signs
Temp Pulse Resp BP Pulse Ox
99.1 F 76 18 162/95 100
12/20/23 13:22 12/20/23 13:22 12/20/23 13:22 12/20/23 13:22 12/20/23 13:22
Last Documented Vital Signs
Temp Pulse Resp BP Pulse Ox
99.1 F 67 19 116/72 97
12/20/23 13:22 12/20/23 17:15 12/20/23 17:15 12/20/23 17:00 12/20/23 17:15
<REGGIE Dick - Last Filed: 12/20/23 19:08>
Orders/Labs/Results
Orders:
Orders
12/20/23 13:12
Electrocardiogram (*1) Urgent
Reason for Study: Shortness of Breath
12/20/23 13:13
EKG- Treatment ONCE
12/20/23 13:44
CT Chest Pe Study Urgent
Comment:
Reason For Exam: chest pain/SOB, 2d s/p L adrenalectomy
12/20/23 13:59
Test Result ONCE
12/20/23 14:05
Complete Blood Count/With Diff Urgent
Comprehensive Metabolic Panel Urgent
HCG, Serum Qualitative Screen Urgent
Troponin I Urgent
12/20/23 15:44
CT Head W/o Iv Contrast Urgent
Comment:
Reason For Exam: headache
12/20/23 14:05
12/20/23 14:05
Vital Signs
Initial and Last Documented VS:
Initial Vital Signs
Temp Pulse Resp BP Pulse Ox
99.1 F 76 18 162/95 100
12/20/23 13:22 12/20/23 13:22 12/20/23 13:22 12/20/23 13:22 12/20/23 13:22
Last Documented Vital Signs
Temp Pulse Resp BP Pulse Ox
99.1 F 67 19 116/72 97
12/20/23 13:22 12/20/23 17:15 12/20/23 17:15 12/20/23 17:00 12/20/23 17:15
<Praneeth Mccrary PA-C - Last Filed: 12/21/23 12:36>
MDM/Problems Addressed
MDM/Problems Addressed:
33-year-old female presenting with various symptoms including dizziness, chest pressure, and shortness of breath 3 days status post left adrenalectomy performed at [facility]. Her labs are reassuring, PE study independently interpreted by me shows no
evidence for acute pulmonary embolism, final result pending. I discussed the case with her surgical team at [facility] and they are comfortable with workup that is completed. I discussed with the patient and she is quite adamant that her head pressure
is concerning her, states this has been ongoing previously with her pheochromocytoma symptoms however given that she is status post surgery she is concerned this indicate something more severe. I am unable to reassure her that neurologically she
appears normal and there is no high indication for CT of we will order this to reassure her there is no mass or bleeding within the brain. Care signed out to Loern Barbsoa NP pending final CT readings
<REGGIE Dick - Last Filed: 12/20/23 19:08>
MDM/Problems Addressed
MDM/Problems Addressed:
33-year-old female presenting with various symptoms including dizziness, chest pressure, and shortness of breath 3 days status post left adrenalectomy performed at [facility]. Her labs are reassuring, PE study independently interpreted by me shows no
evidence for acute pulmonary embolism, final result pending. I discussed the case with her surgical team at [facility] and they are comfortable with workup that is completed. I discussed with the patient and she is quite adamant that her head pressure
is concerning her, states this has been ongoing previously with her pheochromocytoma symptoms however given that she is status post surgery she is concerned this indicate something more severe. I am unable to reassure her that neurologically she
appears normal and there is no high indication for CT of we will order this to reassure her there is no mass or bleeding within the brain. Care signed out to Loren Barbosa NP pending final CT readings
CT head neg for acute findings. I did review results with patient. Patient is well-appearing in no acute distress nontoxic stable for discharge home as previously planned. She has appoint with her surgeon next week.
<Praneeth Mccrary PA-C - Last Filed: 12/21/23 12:36>
Comment
Comment:
EKG independently interpreted by me shows normal sinus rhythm at a rate of [address] changes concerning for ischemia
<REGGIE Dick - Last Filed: 12/20/23 19:08>
*Critical Care Note
Total Time (30-74mins, 75-104mins- exclusive of procedures): Not Applicable
ED Attending Note
<Praneeth Mccrary PA-C - Last Filed: 12/21/23 12:36>
-
Portions of this chart may have been created with voice recognition software.� Occasional wrong word or��sound alike� substitutions may have occurred due to the inherent limitations of voice recognition software.
Discharge Plan
Departure
Patient Disposition: Home (Routine Discharge)
Date of Disposition: 12/20/23
Time of Disposition: 18:42
Patient with high blood pressure during this ER visit?: Yes
Discharge Problem:
Heart palpitations, S/P left adrenalectomy
Instructions: Palpitations ED
Prescriptions:
No Action
ibuprofen 400 mg Tablet
400 mg PO Q6HPRN PRN (Reason: mild pain)
Vitamin 27 mg iron- 800 mcg Tablet
1 tab PO DAILY
acetaminophen 325 mg tablet
975 mg PO Q4HPRN PRN (Reason: mild pain)
Referrals:
Cristobal Cisneros, DO [Family Provider] -
Interventions
Interventions:
*Risk Screen - Suicide Last Done: 12/20/23 13:27
*General Assessment Last Done: 12/20/23 13:27
*Neglect/Abuse Screening Last Done: 12/20/23 13:27
*Nursing Disposition Last Done: 12/20/23 19:02
ED- Cardiac Assessment Last Done: 12/20/23 14:41
ED- Pulmonary Assessment Last Done: 12/20/23 14:41
Discharge Date and Time
Discharge Date/Time: 12/20/23 19:04
Print Language: AZERI
--- NOTE | 2023-12-20 13:49 | PHANOTE ---
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
[2023-12-20 13:51] VITALS: BMI 30.1
[2023-12-20 13:55] VITALS: BP 134/90
[2023-12-20 14:06] VITALS: BP 123/77
[2023-12-20 14:18] LABS: % Basophils 0.9 % (0-2); % Eosinophils 3.4 % (0-6); % Immature Granulocytes 0.1 % (0-0.5); % Lymphocytes 44.3 % (20.5-51.1); % Monocytes 6.9 % (1.7-9.3); % Neutrophils 44.4 % (42.2-75.2); Absolute Basophils 0.1 10^3/uL (0-0.2); Absolute Eosinophils 0.2 10^3/uL (0-0.7); Absolute Lymphocytes 3.1 10^3/uL (1.2-3.4); Absolute Monocytes 0.5 10^3/uL (0.1-0.6); Absolute Neutrophils 3.1 10^3/uL (1.4-6.5); Hematocrit 37.9 % (37.0-47.0); Hemoglobin 12.6 g/dL (12.0-16.0); Mean Corp Hgb Conc. 33.2 g/dL (33.0-37.0); Mean Corpuscular Hgb 28.3 pg (27.0-31.0); Mean Platelet Volume 10.1 fL (7.4-10.4); Nucleated Red Blood Cells % 0 %; Platelet Count 270 10^3/uL (130-400); Red Blood Cell Count 4.46 10^6/uL (4.20-5.40); Red Cell Dist. Width 13.8 % (11.5-14.5)
[2023-12-20 14:38] LABS: HCG, Serum Qualitative Screen Negative
[2023-12-20 14:41] LABS: ALT (SGPT) 26 U/L (0-35); AST (SGOT) 28 U/L (14-36); Albumin 4.1 g/dl (3.5-5.0); Alkaline Phosphatase 45 U/L (38-126); Blood Urea Nitrogen 15 mg/dl (7-17); Calcium 9.3 mg/dl (8.4-10.2); Carbon Dioxide 25 mmol/L (22-30); Chloride 103 mmol/L (98-107); Estimated Creatinine Clearance 123 ml/min; Glucose 89 mg/dl (70-99); Potassium 4.3 mmol/L (3.5-5.1); Sodium 141 mmol/L (135-145); Total Bilirubin 0.2 mg/dl (0.2-1.3); Total Protein 6.6 g/dl (6.3-8.2); eGFR > 60.00
[2023-12-20 14:48] LABS: Troponin I < 0.012 ng/ml
[2023-12-20 15:00] VITALS: BP 119/71
[2023-12-20 16:00] VITALS: BP 123/72
[2023-12-20 17:00] VITALS: BP 116/72
== END 2023-12-20 19:04 | disposition home or self-care (01) ==
LOC: EMR 13:11
PROVIDERS: Physician Assistant; EMERGENCY PHYSICIAN Student in an Organized Health Care Education/Training Program; FAMILY PHYSICIAN Family Medicine
DX: R00.2 Palpitations (principal); R42 Dizziness and giddiness; R06.02 Shortness of breath; R11.0 Nausea; R07.89 Other chest pain; K59.00 Constipation, unspecified; K62.5 Hemorrhage of anus and rectum; R03.0 Elevated blood-pressure reading, without diagnosis of hypertension; D35.00 Benign neoplasm of unspecified adrenal gland; Z98.890 Other specified postprocedural states; Z87.19 Personal history of other diseases of the digestive system
CPT/HCPCS: 99285; 70450; 71275; 80053; 84484; 84703; 85025; 93005; Q9967

== ENCOUNTER → 2024-02-12 10:36 | Outpatient (REF) | payer BC, SELFPAY | LOC: MRI 3T 10:36 | PROVIDERS: ATTENDING PHYSICIAN Family Medicine; FAMILY PHYSICIAN Family Medicine | DX: R10.9 Unspecified abdominal pain (principal) | CPT/HCPCS: 74183; A9575 ==

== ENCOUNTER → 2024-02-24 10:17 | Outpatient (REF) | payer BC, SELFPAY | LOC: RCS 10:17 | PROVIDERS: ATTENDING PHYSICIAN Internal Medicine Cardiovascular Disease; FAMILY PHYSICIAN Family Medicine | DX: R00.2 Palpitations (principal) | CPT/HCPCS: 93225; 93226 ==

== ENCOUNTER → 2024-03-24 13:14 | Outpatient (REF) | payer BC, SELFPAY | LOC: HWRAD 13:14 | PROVIDERS: ATTENDING PHYSICIAN Obstetrics & Gynecology; FAMILY PHYSICIAN Family Medicine | DX: N92.6 Irregular menstruation, unspecified (principal); R10.32 Left lower quadrant pain | CPT/HCPCS: 76830; 76856 ==

== ENCOUNTER → 2024-06-19 09:08 | Outpatient (REF) | payer BC, SELFPAY | LOC: HWRCS 09:08 | PROVIDERS: ATTENDING PHYSICIAN Internal Medicine Cardiovascular Disease; FAMILY PHYSICIAN Family Medicine | DX: R07.9 Chest pain, unspecified (principal); R06.02 Shortness of breath; C74.92 Malignant neoplasm of unspecified part of left adrenal gland | CPT/HCPCS: 93306 ==

== ENCOUNTER → 2024-06-30 07:27 | Outpatient (REF) | payer BC, SELFPAY | LOC: RCS 07:27 | PROVIDERS: ATTENDING PHYSICIAN Internal Medicine Cardiovascular Disease; FAMILY PHYSICIAN Family Medicine | DX: R06.02 Shortness of breath (principal); R07.9 Chest pain, unspecified | CPT/HCPCS: 93017 ==

== ENCOUNTER → 2024-11-17 13:52 | Outpatient (REF) | payer BC, SELFPAY | LOC: WDC 13:52 | PROVIDERS: ATTENDING PHYSICIAN Advanced Practice Midwife; FAMILY PHYSICIAN Family Medicine | DX: N64.4 Mastodynia (principal) | CPT/HCPCS: 76642 ==

== ENCOUNTER 2025-01-08 15:34 | Emergency (ER) | payer BC, SELFPAY ==
[2025-01-08 15:41] VITALS: BP 176/113
[2025-01-08 16:27] LABS: HCG, Serum Qualitative Screen Negative
[2025-01-08 16:32] LABS: ALT (SGPT) 27 U/L (0-35); AST (SGOT) 26 U/L (14-36); Albumin 4.6 g/dl (3.5-5.0); Alkaline Phosphatase 56 U/L (38-126); Blood Urea Nitrogen 7 mg/dl (7-17); Calcium 9.1 mg/dl (8.4-10.2); Carbon Dioxide 24 mmol/L (22-30); Chloride 105 mmol/L (98-107); Glucose 104 mg/dl (70-99); Potassium 4.5 mmol/L (3.5-5.1); Sodium 138 mmol/L (135-145); Total Protein 7.5 g/dl (6.3-8.2); eGFR > 60.00
[2025-01-08 16:51] LABS: Hematocrit 41.8 % (37.0-47.0); Hemoglobin 13.4 g/dL (12.0-16.0); Mean Corp Hgb Conc. 32.1 g/dL (33.0-37.0); Mean Corpuscular Volume 85.5 fL (81.0-99.0); Nucleated Red Blood Cells % 0 %; Platelet Count 339 10^3/uL (130-400); Red Cell Dist. Width 13.0 % (11.5-14.5)
[2025-01-08 18:28] VITALS: BP 140/82
[2025-01-08 19:00] VITALS: BP 127/79
[2025-01-08 19:16] VITALS: BMI 34.0
--- NOTE | 2025-01-08 19:44 | ED.GENMED ---
History of Present Illness
General
Chief Complaint: Breathing Problem
Source: patient
Exam Limitations: none
Time Seen by Provider: 01/08/25 19:27
History of Present Illness
History of Present Illness:
See MDM
Past History
Past History
ED Past Medical History: Hypothyroidism
ED Past Surgical History: Other (partial throidectomy, pheochromocytoma removal)
Social History
Tobacco: Non-smoker
Alcohol: None
Phy Exam
Physical Exam
Physical Exam:
See MDM
Course
Orders/Labs/Results
Orders:
Orders
01/08/25 15:35
EKG [Electrocardiogram (*1)] Urgent
Reason for Study: Chest Pain
01/08/25 15:36
EKG- Treatment ONCE
01/08/25 15:44
Test Result ONCE
01/08/25 15:55
Complete Blood Count/With Diff Urgent
Comprehensive Metabolic Panel Urgent
HCG, Serum Qualitative Screen Urgent
TSH Reflex To Free T4 Urgent
Comment: ADD ON
01/08/25 19:43
CT Abd/pelvis W Iv Cont Urgent
Comment: hx pheochromocytoma
Reason For Exam: abd pain and diarrhea
01/08/25 19:45
Add On- LAB Urgent
Tests Added?: TSH reflex free TF
Abnormal Lab Results
01/08/25
15:55
MCHC 32.1 L g/dL
(33.0-37.0)
Absolute Lymphs (auto) 4.5 H 10^3/uL
(1.2-3.4)
Neutrophils % 38.3 L %
(42.2-75.2)
Lymphocytes % 51.2 H %
(20.5-51.1)
Glucose 104 H mg/dl
(70-99)
01/08/25 15:55
01/08/25 15:55
Vital Signs
Initial and Last Documented VS:
Initial Vital Signs
Temp Pulse Resp BP Pulse Ox
97.7 F 90 18 176/113 99
01/08/25 15:41 01/08/25 15:41 01/08/25 15:41 01/08/25 15:41 01/08/25 15:41
Last Documented Vital Signs
Temp Pulse Resp BP Pulse Ox
97.7 F 72 13 127/79 100
01/08/25 15:41 01/08/25 19:00 01/08/25 19:00 01/08/25 19:00 01/08/25 19:45
MDM/Problems Addressed
Differential Diagnosis Includes:
Note:
CHIEF COMPLAINT(S)
Shortness of breath and chest tightness.
HISTORY OF PRESENT ILLNESS
The patient is a 34-year-old female presenting with shortness of breath and chest tightness. She experienced initial symptoms during a work conference in [place] but noted an escalation in severity today. She reports her blood pressure was high. The
patient has a known history of a pheochromocytoma; she underwent a PET scan that revealed thyroid cancer, which has been addressed. Since then, patient has had her pheochromocytoma removed and a partial thyroidectomy. The patient has experienced
intermittent episodes of chest pain with palpitations and shortness of breath following surgery, initially every two weeks and now occurring every six months.
Recently, she has been experiencing heavy bleeding following a prescription for Provera, leading to significant weakness and lightheadedness. She has also reported hemorrhoids, which were recently evaluated via colonoscopy and are managed with a
topical cream. Additional symptoms included left-sided body numbness and tingling during episodes, which intensified to both sides, face flushing, limb weakness, and reported anxiety exacerbation. The patient expresses concern about the potential
for having another pheochromocytoma
Patient also stating that she recently had a diagnosis of Campylobacter diarrhea but those symptoms have been resolving
PAST MEDICAL AND SURGICAL HISTORY
- preeclampsia
- Pheochromocytoma
- Thyroid cancer
SOCIAL DETERMINANTS OF HEALTH
The patient mentioned alcohol use for the first time in two years during a recent trip which coincides with a bout of diarrhea.
PHYSICAL EXAM
General: Alert, no acute distress.
Skin: Warm, dry.
Head: Normocephalic, atraumatic
Neck: Appears supple, trachea midline.
Eyes, Ears, Nose, Mouth, and Throat: Moist mucous membranes
Cardiovascular: No signs of cyanosis. Regular rate and rhythm. No murmur
Respiratory: Respirations are non-labored. Lungs clear
Abdomen: Non-distended and nontender
Musculoskeletal: No deformities
Neurological: No focal neurological deficit observed.
Psychiatric: Cooperative, appropriate mood and affect.
PLAN
The plan includes ordering a CT scan of the abdomen to explore potential causes of gastrointestinal symptoms, such as bleeding or signs of colitis or diverticulosis, while waiting for the remaining blood work.
DIFFERENTIAL DIAGNOSIS
The Differential Diagnosis includes, in no particular order and is not limited to:
- Anxiety
- Pheochromocytoma recurrence
- Cardiac arrhythmia
- Hormonal imbalance
- hormonal changes
- Diverticulosis
- Gastrointestinal bleeding
- Adrenal insufficiency
- Thyroid dysfunction
- Panic disorder
MEDICAL DECISION MAKING
-Complexity of Data Reviewed: Chronic conditions affecting care including preeclampsia, pheochromocytoma, thyroid cancer.
-Data:
Category 1
The following tests were ordered to further investigate and evaluate patient symptoms: CT scan of the abdomen to assess gastrointestinal tract and structures.
Category 2
No independent historian utilized.
-Risk:
Risk of complications associated with potential underlying conditions and current presenting symptoms. Management consideration involved possible imaging for further evaluation.
SUMMARY OF ENCOUNTER
The patient presented with intermittent shortness of breath and palpitations. Given the normal lung sounds and the absence of current respiratory symptoms, a chest X-ray was not warranted. Considering the intermittent abdominal discomfort and
diarrhea, especially in the context of the patients history of pheochromocytoma, a CT of the abdomen and pelvis was ordered. The findings were nonspecific. The patient was provided with a printout of the CT report and lab results. A follow-up with
the primary care doctor to assess further is recommended.
PLAN
The plan includes the patient following up with their primary care doctor to assess the potential need for a Holter monitor. Additionally, the patient is advised to follow up with an outpatient pelvic ultrasound.
INDEPENDENT REVIEW OF LABS AND INTERPRETATION OF TESTS
My independent review of the CT of the abdomen and pelvis is that it shows nonspecific findings.
FOLLOW-UP INSTRUCTIONS
The patient was advised to follow up with the primary care doctor to assess the potential need for a Holter monitor and to obtain an outpatient pelvic ultrasound.
MEDICATION RECONCILIATION
No medications were administered or prescribed during this encounter.
MEDICAL DECISION MAKING
-Complexity of Data Reviewed: Chronic conditions affecting care include preeclampsia, pheochromocytoma, and thyroid cancer. Differential Diagnosis consideration includes anxiety, pheochromocytoma recurrence, cardiac arrhythmia, hormonal
imbalance, hormonal changes, diverticulosis, gastrointestinal bleeding, adrenal insufficiency, thyroid dysfunction, and panic disorder.
-Data:
Category [address] scan of the abdomen and pelvis was reviewed with nonspecific findings. The CT imaging was ordered to evaluate the gastrointestinal symptoms in the context of the patients medical history.
-Risk:
Consideration of Admission/Observation: Escalation of care including admission/observation was considered given the complexity and risk of the patients presenting complaint, exam findings, and/or their underlying comorbidities. However, ultimately I
feel the patient is safe for outpatient management with close follow-up. Reasoning: Work-up reassuring, does not reveal any acute life/organ-threatening processes, the patients symptoms well-controlled upon reevaluation, reexamination is reassuring,
vitals are stable, patient agreeable with discharge, reliable for follow-up.
DIAGNOSIS
- Intermittent shortness of breath and palpitations, unspecified (R06.02, R00.2)
- Abdominal discomfort, unspecified (R10.9)
- Pheochromocytoma (D35.00)
*Pulse Oximetry
SaO2: 100
Oxygen Mode of Delivery: Room air
Patient hypoxic: no
*Critical Care Note
Total Time (30-74mins, 75-104mins- exclusive of procedures): Not Applicable
ED Attending Note
-
Portions of this chart may have been created with voice recognition software.� Occasional wrong word or��sound alike� substitutions may have occurred due to the inherent limitations of voice recognition software.
Discharge Plan
Departure
Patient Disposition: Home (Routine Discharge)
Date of Disposition: 01/08/25
Time of Disposition: 21:26
Patient with high blood pressure during this ER visit?: No
Discharge Problem:
Heart palpitations
Prescriptions:
No Action
ibuprofen 400 mg Tablet
400 mg PO Q6HPRN PRN (Reason: mild pain)
Vitamin 27 mg iron- 800 mcg Tablet
1 tab PO DAILY
acetaminophen 325 mg tablet
975 mg PO Q4HPRN PRN (Reason: mild pain)
Referrals:
Cristobal Cisneros DO [Family Provider, Family Practice]
Activity Restrictions/Additional Instructions:
Please return for any worsening symptoms.
You may return at any time if you have further concerns.
Please follow up with your doctor at the first available appointment, preferably this week.
Please discuss monitor to assess for symptoms.
Please follow-up with your [employer] and discussed outpatient ultrasound to assess your ovary.
Thank you for choosing [facility].
Interventions
Interventions:
*Risk Screen - Suicide Last Done: 01/08/25 19:16
*General Assessment Last Done: 01/08/25 19:16
*Neglect/Abuse Screening Last Done: 01/08/25 19:23
*ED- Fall Risk Assessment Last Done: 01/08/25 19:16
*ED COVID-19 Vaccine History Last Done: 01/08/25 19:16
*ED Influenza Vaccine History Last Done: 01/08/25 19:16
ED- Cardiac Assessment Last Done: 01/08/25 19:16
ED- Pulmonary Assessment Last Done: 01/08/25 19:16
Discharge Date and Time
Print Language: DANISH
== END 2025-01-08 21:39 | disposition home or self-care (01) ==
LOC: EMR 15:34
PROVIDERS: Emergency Medicine; EMERGENCY PHYSICIAN Student in an Organized Health Care Education/Training Program; FAMILY PHYSICIAN Family Medicine
DX: R00.2 Palpitations (principal); E03.9 Hypothyroidism, unspecified; R06.02 Shortness of breath; R07.89 Other chest pain; D35.00 Benign neoplasm of unspecified adrenal gland; Z85.850 Personal history of malignant neoplasm of thyroid; Z86.018 Personal history of other benign neoplasm; Z87.19 Personal history of other diseases of the digestive system
CPT/HCPCS: 99284; 74177; 80053; 84443; 84703; 85025; 93005; Q9967

== ENCOUNTER → 2025-02-05 07:20 | Outpatient (REF) | payer BC, SELFPAY | LOC: MRI 07:20 | PROVIDERS: ATTENDING PHYSICIAN Internal Medicine; FAMILY PHYSICIAN Family Medicine | DX: K76.9 Liver disease, unspecified (principal) | CPT/HCPCS: 74183; A9581 ==